=== PATIENT | male | born 1995 | race Caucasian/White ===

== ENCOUNTER → 2021-02-21 08:25 | Outpatient (CLI) | payer OTHER, MEDICAID, SELFPAY ==
[2021-02-21 09:30] LABS: COVID19 -Nasal RAPID Negative (Negative)
== END ==
PROVIDERS: PCP Student in an Organized Health Care Education/Training Program; Visit Provider Physician Assistant
DX: Z20.822 Contact with and (suspected) exposure to COVID-19 (principal); J02.9 Acute pharyngitis, unspecified; R05.9 Cough, unspecified; R51.9 Headache, unspecified; R53.83 Other fatigue
CPT/HCPCS: 87635

== ENCOUNTER 2021-12-25 18:21 | Emergency (ER) | payer OTHER, MEDICAID, SELFPAY ==
[2021-12-25 18:42] VITALS: BP 107/57; PULSE 83; RESP 15; TEMP 36.4; O2SAT 99; BMI 21.9
[2021-12-25] MEDS: SODIUM CHLORIDE 0.9% 1,000 ML 1000 ML IV ×2 (18:56→20:21)
[2021-12-25] MEDS: ONDANSETRON 4 MG/2 ML INJ IV (18:57)
[2021-12-25] MEDS: PANTOPRAZOLE 40 MG VIAL IV (18:59)
--- NOTE | 2021-12-25 19:05 | PC.NURSE ---
Intermittent vomiting several days in a row after a recent URI. Patient reports he has had decreased appetite. Patient denies fever, cough. Today after vomiting it wiped me out completely. I couldn't even get up
[2021-12-25 19:25] LABS: Alanine Aminotransferase 19 IU/L (<50); Albumin 4.9 g/dL (3.5-5.0); Albumin Globulin Ratio 1.6 (1.0-2.8); Alkaline Phosphatase 60 U/L (38-126); Aspartate Aminotransferase 26 IU/L (17-59); BUN Creatinine Ratio 11.5 (6-22); Bilirubin Total 0.6 mg/dL (0.2-1.3); Blood Urea Nitrogen 12 mg/dL (9-20); Calcium 9.6 mg/dL (8.4-10.2); Carbon Dioxide 33 mmol/L (22-32); Chloride 104 mmol/L (98-107); Estimated Glomerular Filt Rate > 60 mL/min (>60); Globulin 3.1 g/dL (1.7-4.1); Glucose 97 mg/dL (70-100); HEMOLYSIS < 15 (0-50); Potassium 4.3 mmol/L (3.4-5.1); Sodium 142 mmol/L (137-145)
[2021-12-25 19:35] LABS: COVID19 -Nasal RAPID Negative (Negative)
[2021-12-25 19:54] LABS: Add Manual Diff / Slide Review NO; Basophils Absolute Auto 0 /uL (0-100); Basophils Percent Auto 0.8 % (0-2); Eosinophils Absolute Auto 100 /uL (0-450); Eosinophils Percent Auto 1.1 % (2-4); Hematocrit 45.4 % (41-53); Lymphocytes Absolute Auto 2600 /uL (1100-4500); Lymphocytes Percent Auto 42.8 % (25-40); Mean Corpuscular HGB Conc 35.3 % (30-36); Mean Corpuscular Hemoglobin 31.6 PG (26-34); Mean Corpuscular Volume 89.4 fL (80-100); Monocytes Absolute Auto 500 /uL (0-900); Monocytes Percent Auto 7.5 % (3-14); Neutrophils Absolute Auto 2900 /uL (1500-7000); Neutrophils Percent Auto 47.8 % (50-75); Platelet Count 203 X10^3/uL (150-400); Red Blood Cell Count 5.09 X10^6/uL (4.5-5.9); Red Cell Distribution Width 12.7 % (11.6-14.8)
--- NOTE | 2021-12-25 21:04 | ED_ITS ---
HPI - Nausea/Vomiting/Diarrhea General Chief complaint: Nausea/Vomiting/Diarrhea Stated complaint: Nausea/Vomiting, Lightheaded and Weak Time Seen by Provider: 12/25/21 18:55 Source: patient Mode of arrival: Ambulatory History of Present Illness HPI Narrative: 26-year-old male nonsmoker without significant medical history presents with a chief complaint of a few days of multiple episodes of nausea, vomiting, diarrhea and now with generalized feeling of weakness. He is had no fever or chills. He denies any headache, blurred vision or trouble with speech. He denies runny nose, nasal congestion, sore throat or difficulty swallowing. He states that he drinks a large amount of water and does not feel dehydrated. He is not necessar miguel a dizzy upon standing but just feels generally unwell. He has no cough or shortness of breath denies chest pain, long distance travel or exposure to other ill persons. He denies any medication change or dietary change Related Data Home Medications Medication Instructions Recorded Confirmed No Known Home Medications 11/09/19 02/21/21 Allergies Allergy/AdvReac Type Severity Reaction Status Date / Time No Known Drug Allergies Allergy Verified 12/25/21 18:47 Review of Systems Review of Systems Narrative: GENERAL: D see HPI s. HEENT: See HPI RESPIRATORY: See HPI CARDIOVASCULAR: Denies chest pain, palpitations, orthopnea, edema, GASTROINTESTINAL: See HPI : Denies dysuria, frequency, incontinence, hematuria, urinary retention. MUSCULOSKELETAL: denies weakness, joint pain, or bony pain SKIN: Denies rash, skin lesions, or other NEUROLOGIC: Denies weakness, headache, numbness, change in speech, confusion, seizures, incoordination. PSYCHIATRIC: No concerning psychosocial issues. 12 point review of systems is negative except for those stated above Patient History Medical History (Updated 12/25/21 @ 21:14 by Dale Kilgore DO) Influenza A Social History Smoking Status: Former smoker Smoking Status: Former smoker alcohol intake frequency: holidays/special occasions only Substance Use Type: marijuana Exam Narrative Exam Narrative: GENERAL: [26] year old patient appears stated age. Well-developed patient, in mild distress. HEAD: Atraumatic. Normocephalic. EYES: Pupils equal round and reactive. Extraocular motions intact. No scleral icterus. No injection or drainage. ENT: Nose without bleeding, purulent drainage. Throat without erythema, tonsillar hypertrophy or exudate. Airway patent. NECK: Trachea midline. Non tender CARDIOVASCULAR: Regular rate and rhythm without murmurs, gallops, or rubs. RESPIRATORY: Clear to auscultation. Breath sounds equal bilaterally. No wheezes, rales, or rhonchi. GASTROINTESTINAL: Abdomen soft, non-tender, nondistended. EXTREMITIES: No edema or joint tenderness. BACK: Nontender without deformity or crepitance. No flank tenderness. NEURO: AOx3. SKIN: No rash or erythema of visible areas Initial Vital Signs Initial Vital Signs: Vital Signs Temperature 97.5 F L 12/25/21 18:42 Pulse Rate 83 12/25/21 18:42 Respiratory Rate 15 12/25/21 18:42 Blood Pressure 107/57 L 12/25/21 18:42 Pulse Oximetry 99 12/25/21 18:42 Oxygen Delivery Method 12/25/21 18:42 Course Orders Ordered: ED Orders 12/25/21 18:56 Complete Blood Count AUTO DIFF Stat Comprehensive Metabolic Panel Stat 12/25/21 19:03 COVID19 -Nasal RAPID/Pre-Proc Stat Discontinued Medications Sodium Chloride (Normal Saline 0.9%) 1,000 mls @ 1,000 mls/hr IV BOLUS ONE Stop: 12/25/21 19:49 Last Infusion: 12/25/21 19:47 Dose: 0 mls/hr Documented By: Admin: 12/25/21 18:56 Dose: 1,000 mls/hr Documented By: FAVIOLA Sodium Chloride (Normal Saline 0.9%) 1,000 mls @ 1,000 mls/hr IV BOLUS ONE Stop: 12/25/21 19:54 Last Infusion: 12/25/21 21:09 Dose: 0 mls/hr Documented By: Admin: 12/25/21 20:21 Dose: 1,000 mls/hr Documented By: FAVIOLA Ondansetron HCl (Ondansetron 4 Mg/2 Ml Inj) 4 mg IV NOW ONE Stop: 12/25/21 18:50 Last Admin: 12/25/21 18:57 Dose: 4 mg Documented By: FAVIOLA Ondansetron HCl (Ondansetron 4 Mg/2 Ml Inj) 4 mg IV NOW ONE Stop: 12/25/21 18:56 Last Admin: 12/25/21 18:59 Dose: Not Given Documented By: FAVIOLA Ondansetron HCl (Ondansetron 4 Mg Odt Prepack) 1 bottle MISC SEEINSTR ONE Stop: 12/25/21 21:15 Last Admin: 12/25/21 21:21 Dose: 1 bottle Documented By: ROICO Pantoprazole Sodium (Pantoprazole 40 Mg Vial) 40 mg IV NOW ONE Stop: 12/25/21 18:56 Last Admin: 12/25/21 18:59 Dose: 40 mg Documented By: FAVIOLA Vital Signs Vital signs: Vital Signs - 8 hr 12/25/21 21:26 Pulse Rate 86 Respiratory Rate 16 Blood Pressure 121/63 Pulse Oximetry 99 Oxygen Delivery Method Room Air MDM - Nausea/Vomiting/Diarrhea Lab Data Result diagrams: 12/25/21 18:56 12/25/21 18:56 Labs: Lab Results 12/25/21 12/25/21 12/25/21 Range/Units 18:56 18:56 19:03 WBC 6.0 (4.5-11.0) X10^3/uL RBC 5.09 (4.5-5.9) X10^6/uL Hgb 16.0 (13.5-17.5) g/dL Hct 45.4 (41-53) % MCV 89.4 (80-100) fL MCH 31.6 (26-34) PG MCHC 35.3 (30-36) % RDW 12.7 (11.6-14.8) % Plt Count 203 (150-400) X10^3/uL Neut % (Auto) 47.8 L (50-75) % Lymph % (Auto) 42.8 H (25-40) % [place] % (Auto) 7.5 (3-14) % Eos % (Auto) 1.1 L (2-4) % Baso % (Auto) 0.8 (0-2) % Neut # (Auto) 2900 (6901-6663) /uL Lymph # (Auto) 2600 (3975-8977) /uL [place] # (Auto) 500 (0-900) /uL Eos # (Auto) 100 (0-450) /uL Baso # (Auto) 0 (0-100) /uL Sodium 142 (137-145) mmol/L Potassium 4.3 (3.4-5.1) mmol/L Chloride 104 (98-107) mmol/L Carbon Dioxide 33 H (22-32) mmol/L BUN 12 (9-20) mg/dL Creatinine 1.04 (0.66-1.25) mg/dL Estimated GFR > 60 (>60) mL/min BUN/Creatinine Ratio 11.5 (6-22) Glucose 97 (70-100) mg/dL Calcium 9.6 (8.4-10.2) mg/dL Total Bilirubin 0.6 (0.2-1.3) mg/dL AST 26 (17-59) IU/L ALT 19 (<50) IU/L Alkaline Phosphatase 60 (38-126) U/L Total Protein 8.0 (6.3-8.2) g/dL Albumin 4.9 (3.5-5.0) g/dL Globulin 3.1 (1.7-4.1) g/dL Albumin/Globulin Ratio 1.6 (1.0-2.8) SARS-CoV-2 (PCR) Negative (Negative) Urine Dip Bedside Urine Glucose Negative Bedside Urine Bilirubin - Negative Bedside Urine Ketone - Negative Urine Specific [place] 1.025 Bedside Urine Occult Blood - Negative Bedside Urine pH 6.0 Bedside Urine Protein - Negative Bedside Urine Urobilinogen - Negative Bedside Urine Nitrite - Negative Bedside Urine Leukocytes - Negative Esterase MDM Narrative Medical decision making narrative: Patient with reassuring history and physical exam without any significant abnormalities and vitals or labs. Multiple diagnoses considered including, and most likely underlying viral syndrome but other diagnoses such as electrolyte abnormality Discharge Plan Departure Patient Disposition: Home Clinical Impression: Vomiting and diarrhea Instructions: DI for Nausea -- Adult, DI for Vomiting -- Adult Activity Restrictions/Additional Instructions: *You have been diagnosed with [nausea, vomiting and diarrhea. As we discussed your history and physical exam are reassuring as are your labs. There is no significant abnormality at this time that would require a specific or immediate intervention, but close follow-up with your primary care provider is advised nonetheless.] *What to do: *Please continue to take your regular medications as directed. [ ] New medication prescriptions sent to your pharmacy: [ ] [ ] New medication written as a paper prescription [ x] No new medications given *Please follow up with your primary care provider in 2-3 days, call for an appointment. Let them know you were seen in the Emergency Department and that we ask that you be seen in follow up. We will electronically transmit a record of today's note if your PCP is in our system *If you do not have a primary care provider please contact the [facility] Resource line at [phone]. They will ask some questions about your medical history and help get you set up with a doctor in the community. *Return to Emergency Department if you should have any new, worsening or concerning symptoms, such as [fever greater than 101 F, shaking chills, worsening pain, persistent vomiting or other bothersome symptoms] Prescriptions: No Action No Known Home Medications Referrals: Yassine Fierro MD [Primary Care Provider] - Visit Report Forms: Patient Portal/API
[2021-12-25] MEDS: ONDANSETRON 4 MG ODT PREPACK 1 BOTTLE MISC (21:21)
[2021-12-25 21:26] VITALS: BP 121/63; PULSE 86; RESP 16; O2SAT 99
== END 2021-12-25 21:28 | disposition home or self-care (01) ==
PROVIDERS: Emergency Provider Emergency Medicine; PCP Student in an Organized Health Care Education/Training Program
DX: R11.2 Nausea with vomiting, unspecified (principal); R19.7 Diarrhea, unspecified; Z20.822 Contact with and (suspected) exposure to COVID-19
CPT/HCPCS: 36415; 80053; 81003; 85025; 87635; 96361; 96374; 96375; 99284; C9803; C9113; J2405